=== PATIENT | female | born 1940 | race Caucasian/White ===

== ENCOUNTER 2016-11-23 12:13 | Inpatient (IN) | payer MEDICARE, BC ==
--- NOTE | ~2016-11-23 | US84 ---
[id number] [facility]. [facility] [address] [facility]. [place], [place] [address] [id number] MR#: [id number] Acc #: [id number] NAME: SPENCER CEDILLO : 1940 SEX: F STUDY DATE/TIME: 11/24/2016 11:00 UNIT: C5B ROOM: 552 STUDY DESCRIPTION: US LE Veins Complete Jorge Stdy Attending Physician: Samira Doss M.D. Ordering Physician: Rosetta Gonzales M.D. Primary Care Physician: Yolanda Lamas M.D. MEDICAL IMAGING REPORT This report is preliminary unless electronic signature is present EXAM Bilateral lower extremity venous duplex, 11/24/2016. HISTORY Bilateral lower extremity pain and edema for 2 days. Evaluate for deep vein thrombosis. TECHNIQUE Venous ultrasound examination of both lower extremities was performed using grayscale, spectral Doppler and color flow Doppler imaging. FINDINGS The examination is negative. There is no evidence of deep venous thrombus from the groin to the lower calf bilaterally. Visualized greater saphenous veins are also patent. IMPRESSION Negative examination. No evidence of lower extremity deep venous thrombosis. Dictated by... Sergio Davis M.D. THIS IS AN ELECTRONICALLY VERIFIED REPORT Sergio Davis M.D. at 11/25/2016 9:23 AM MARGIE/tuyet TD: 11/24/2016 15:09 JOB #: [id number] MEDICAL IMAGING REPORT Page 1 of 1 COPY
--- NOTE | ~2016-11-23 | DS ---
Unit #: [id number] #: [id number] Patient: SPENCER CEDILLO [id number] [facility] [address] [facility]. [place], [place] [address] [id number] I MR#: [id number] NAME: SPENCER CEDILLO ROOM: [facility] Age: 76 Sex: F Admission Date: 11/23/2016 : 1940 Discharge Date: 11/28/2016 Attending Physician: Samira Doss M.D. Primary Care Physician: Yolanda Lamas M.D. DISCHARGE SUMMARY DIAGNOSIS ON ADMISSION Shortness of air. DIAGNOSES ON DISCHARGE 1. Acute pulmonary embolism. 2. Acute respiratory failure, resolved. 3. Atrial fibrillation with rapid ventricular rate. 4. Elevated troponin. 5. Hypertension. 6. Hyperlipidemia. CONSULTATIONS 1. Dr. Donaldson in hematology/oncology consultation. 2. Dr. Friedman in pulmonary consultation. 3. Dr. Smith in cardiology consultation. DIAGNOSTIC STUDIES LABORATORY: Patient's creatinine is 1.1, sodium 138, and potassium is 4.3. WBC 8.3, hemoglobin is 12.1, and platelet count is 258. Troponin was 0.03. TSH was 0.71. Patient's total cholesterol was 249, LDL was 163, HDL was 63, and triglycerides 115. IMAGING: Patient's bilateral lower extremity venous Dopplers did not reveal any evidence of DVT. VQ scan was high probability for PE. HOSPITAL COURSE This 76-year-old patient was admitted to [facility] with shortness of air. Details are as per admission H and P. Acute respiratory failure: It was secondary to PE. Patient was treated with Lovenox. Dr. Gonzalez has recommended Xarelto. Atrial fibrillation with history of rapid ventricular rate. Patient was seen by Dr. Smith in consultation, who has started patient on diltiazem as patient is already on it and will be on Xarelto at home. Elevated troponin. Patient is advised to follow up with primary care physician in one week. Patient had a 2D echocardiogram, which revealed left ventricular ejection fraction was normal. There was mild mitral and tricuspid regurgitation present and diastolic dysfunction present. Unit #: [id number] #: [id number] Patient: SPENCER CEDILLO Today, patient is comfortable and is anxious to go home. Patient was started on Lipitor. Because of her LDL, patient is advised to have a fasting lipid profile and LFTs with primary care physician in six weeks. PHYSICAL EXAMINATION VITAL SIGNS: Reveal temperature of 97.6, pulse is 83 per minute, respiratory rate is 18 per minute, and blood pressure is 119/65. HEENT: Revealed no conjunctival congestion. Sclerae are nonicteric. NECK: Supple. Trachea is central. RESPIRATORY: Revealed breath sounds equal bilaterally. There are no wheezes or crackles. HEART: Regular rate and rhythm. S1 and S2. ABDOMEN: Soft and nontender. Bowel sounds are present in all four quadrants. NEUROLOGIC: Patient is alert to person, place, and time. Power is 5 out of 5 bilaterally. Sensations are grossly intact. SKIN: Warm and dry. RECOMMENDATIONS ON DISCHARGE 1. Condition is stable. 2. Activities as tolerated. MEDICATIONS 1. Cardizem CD 120 mg p.o. daily. 2. Lopressor 25 mg p.o. b.i.d. 3. Lipitor 40 mg p.o. q.h.s. 4. Xarelto 15 mg 1 p.o. b.i.d. for 3 weeks and then 20 mg p.o. daily. FOLLOWUP 1. Patient is advised to follow up with primary care physician in one week and follow up with Dr. Friedman in 1-[address] Smith in 2 weeks. Patient was advised to follow up with Dr. Gonzalez in 2 weeks as well for followup (1) . 2. Patient is advised to call primary care physician or go to ER if her condition changes. The plan was discussed in detail with patient and has also been discussed with patient's family and they have shown complete understanding. (2) home health regarding home safety assessment and PT and OT and nursing. Dictated by... Saray Jalloh TD: 11/28/2016 11:23 JOB #: [id number] CC: Florinda Gonzalez M.D. Unit #: [id number] #: [id number] Patient: SPENCER CEDILLO DISCHARGE SUMMARY Page 1 of 1 X Samira Doss MD DISCHARGE SUMMARY
--- NOTE | ~2016-11-23 | CO ---
Unit #: [id number] #: [id number] Patient: SPENCER WISDOM [id number] [facility]. [place], [place] [address] [id number] I MR#: [id number] NAME: SPENCER WISDOM ROOM: [facility] Age: 76 Sex: F Admission Date: 11/23/2016 : 1940 Attending Physician: Samira Doss M.D. Primary Care Physician: Yolanda Lamas M.D. Consultation Date: 11/24/2016 CONSULTATION REPORT REASON FOR CONSULTATION PE, possible sleep apnea. HISTORY OF PRESENT ILLNESS A 76-year-old female with no lung disease, who had a fairly sudden onset of shortness of breath on Wednesday. She still went to spiritism and do a , but she had worsening shortness of breath. It was primarily dyspnea on exertion. She denied chest pain, hemoptysis, wheezing, sputum production. She also denied any leg pain or swelling. It got worse and she went to her doctor and saturations were low and was brought to the emergency room. Here, she ultimately was diagnosed with a PE by V/Q scan which was high probability. Lower extremity venous Dopplers were negative. She does feel somewhat better today, but admits that she had not gotten up and walked. She has never had a previous blood clot. PAST MEDICAL HISTORY Remarkable for hypertension and depression. She denies any type of lung disease. She denies any type of heart disease nor any previous blood clots. MEDICATIONS At home; Procardia and lisinopril. ALLERGIES Iodine contrast, unknown reaction. FAMILY HISTORY Her mother had blood clot that was unprovoked. SOCIAL HISTORY She is a never smoker. 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 There has been no trauma, prolonged immobilization, etc. REVIEW OF SYSTEMS No fever, chills, weight loss, trauma, casting, prolonged immobilization, chest pain, palpitations, abdominal pain, melena, hematochezia, hematuria, or dysuria. Further review of systems negative. She does snore and she has profound daytime sleepiness. She feels like she wants to fall asleep whenever she sits down. PHYSICAL EXAMINATION GENERAL: Reveals a patient, who is in no acute distress. Unit #: [id number] #: [id number] Patient: SPENCER WISDOM VITAL SIGNS: Afebrile, pulse 52, respiratory rate is 16, blood pressure is 143/66. She is 5 feet 6 inches and 216 pounds. HEENT: Pupils are equal, round, and reactive to light. Sclerae anicteric. Head atraumatic. NECK: Supple. No supraclavicular or cervical adenopathy appreciated. Mucous membranes moist. Mallampati class IV oropharynx. She has dentures. CHEST: Equal breath sounds. No wheeze or stridor. CARDIAC: Reveals regular rate and rhythm. No gallop. ABDOMEN: Obese, soft, and nontender. No hepatomegaly or rebound. EXTREMITIES: Reveal no clubbing, cyanosis, or edema. No calf tenderness. SKIN: Warm and dry without rash or diaphoresis. NEUROLOGIC: Grossly intact. No focal motor or sensory deficits. DIAGNOSTIC STUDIES IMAGING STUDIES: V/Q scan, high probability BUN is 22, creatinine is 1.1. Troponin was elevated at 0.23, now at 0.13. BNP is 108. D-dimer was 7643. CBC normal. IMAGING STUDIES: Rhythm strip, sinus. IMPRESSION 1. Acute pulmonary embolism, unprovoked. 2. Respiratory failure with a low saturations, stable on low-flow oxygen. 3. Elevated troponin and elevated BNP secondary to pulmonary embolism and right ventricular strain. 4. Snoring and profound daytime sleepiness, almost assuredly sleep apnea (which certainly is a risk factor for clot). 5. Medical problems listed above. PLAN Check O2 needs in the morning. Follow up echocardiogram and outpatient nocturnal polysomnography. This has all been discussed with the family and patient. Certainly, if she is found to have elevated RVSP, she will need very close followup as an outpatient to rule out chronic thromboembolic pulmonary hypertension. I will ask Hematology to see the patient in consultation for hypercoagulable workup. At this point, it is unclear what cancer screening she is up to date on, but that will have to be investigated. Thank you very much for allowing me to participate in the care of Ms. Wisdom. Dictated by... Saray Daley/treva TD: 11/25/2016 05:46 JOB #: [id number] CC: Saray Garcia M.D. Unit #: [id number] #: [id number] Patient: SPENCER WISDOM CONSULTATION REPORT Page 1 of 1 X Canelo Friedman MD CONSULTATION REPORT
--- NOTE | ~2016-11-23 | CO ---
Unit #: [id number] #: [id number] Patient: SPENCER CEDILLO [id number] [address] [place], [place] [address] [id number] I MR#: [id number] NAME: SPENCER CEDILLO ROOM: [facility] Age: 76 Sex: F Admission Date: 11/23/2016 : 1940 Attending Physician: Samira Doss M.D. Primary Care Physician: Yolanda Lamas M.D. Consultation Date: 11/25/2016 CONSULTATION REPORT REASON FOR EVALUATION Pulmonary emboli, please evaluate. HISTORY OF PRESENT ILLNESS A 76-year-old lady who presented to the primary care with increasing shortness of breath, hypoxia. Was admitted, evaluated with a V/Q scan because her BUN was 32, creatinine 1.1 and was found to have a high probability V/Q scan and a D-dimer of 7643. Negative lower extremity Doppler. We are requested to evaluate. Today on questioning, she has her daughter with her and she states that after admission she is feeling much better. No chest pain. No hemoptysis. PAST MEDICAL HISTORY 1. Hypertension. 2. Depression. 3. No past history of DVT or PE. FAMILY HISTORY Positive for DVT in mother. No pulmonary emboli. Otherwise, family history is completely negative for coagulopathy or clotting or bleeding. SOCIAL HISTORY Nonsmoker. No alcohol usage. No drug usage. CHRONIC MEDICATIONS 1. Lisinopril. 2. Procardia. ALLERGIES IV contrast. REVIEW OF SYSTEMS Increasing shortness of breath. No chest pain. Mild degree of cough. Appetite fairly good. Weight is stable. Performance 100%. Otherwise, six or eight systems were within normal limits. PHYSICAL EXAMINATION GENERAL: On exam, she is very comfortable, lying flat in bed. VITAL SIGNS: O2 at 2 L nasal cannula. LUNGS: Few crepitations in the lungs bilaterally. No palpable nodes. CARDIOVASCULAR: Distant S1, S2. ABDOMEN: Moderately obese. No organomegaly. EXTREMITIES: Lower extremities: No edema. PELVIC: Not performed. Unit #: [id number] #: [id number] Patient: SPENCER CEDILLO BREAST: Not performed. DIAGNOSTIC STUDIES LABORATORY: CBC: Hemoglobin 11, hematocrit 34.9, white count 10.7, platelets 229,000. Sodium 139, potassium 4.7, chloride 105, CO2 of 26, glucose 95, BUN 32, creatinine 1.1. D-dimer 7643. IMAGING: V/Q scan: High probability. Doppler lower extremity: Negative. IMPRESSION This 76-year-old lady who presented with hypoxia and respiratory symptoms was found to have high probability V/Q scan, negative deep venous thrombosis, non ST myocardial infarction. Recuperating very well with negative risk factors for clotting except BMI of 35. Currently, much improved post admission. PLAN Will proceed with a mini hypercoagulable workup which will include factor V Leiden, prothrombin gene mutation, lupus anticoagulant, antiphospholipid and anticardiolipin antibodies. We will stop at that point from the hypercoagulable workup because the rest of them are mainly family related coagulation defects. No need to check for those. Will schedule outpatient followup in couple weeks to discuss with her, her risk factors. In the meantime, agree with you on Xarelto 15 mg twice daily for 21 days followed by 20 mg with supper. Dictated by... Victoriano Donaldson M.D. SHENA/dania TD: 11/25/2016 17:17 JOB #: [id number] CONSULTATION REPORT Page 1 of 1 X Victoriano Donaldson MD CONSULTATION REPORT
--- NOTE | ~2016-11-23 | EKG ---
PATIENT: SPENCER CEDILLO UNIT #: [id number] Ventricular Rate: 112 BPM Atrial Rate: 119 BPM QRS Duration: 92 ms Q-T Interval: 330 ms QTC Calculation(Bezet): 450 ms Calculated R [place]: -19 degrees Calculated T [place]: 89 degrees Diagnosis Line: Atrial fibrillation with rapid ventricular Diagnosis Line: response Diagnosis Line: Abnormal ECG Diagnosis Line: When compared with ECG of 26-NOV-2016 08:35, Diagnosis Line: No significant change was found Diagnosis Line: Confirmed by OH MONTES MD ([id number]) on Diagnosis Line: 11/27/2016 1:39:53 PM INTERPRETING MD: SIMON ESTES
--- NOTE | ~2016-11-23 | EKG ---
PATIENT: SPENCER CEDILLO UNIT #: [id number] Ventricular Rate: 89 BPM Atrial Rate: 89 BPM P-R Interval: 188 ms QRS Duration: 96 ms Q-T Interval: 354 ms QTC Calculation(Bezet): 430 ms P [place]: 59 degrees Calculated R [place]: -38 degrees Calculated T [place]: 52 degrees Diagnosis Line: Normal sinus rhythm Diagnosis Line: Left axis deviation Diagnosis Line: Abnormal ECG Diagnosis Line: No previous ECGs available Diagnosis Line: Confirmed by CHELY NIETO MD ([id number]) on Diagnosis Line: 11/23/2016 10:11:48 PM INTERPRETING MD: ARRON
--- NOTE | ~2016-11-23 | HP ---
Unit #: [id number] #: [id number] Patient: SPENCER CEDILLO [id number] [address] [place], [place] [address] [id number] I MR#: [id number] NAME: SPENCER CEDILLO ROOM: [address] Age: 76 Sex: F Admission Date: 11/23/2016 : 1940 Attending Physician: Isaias Lazo M.D. Primary Care Physician: Yolanda Lamas M.D. HISTORY AND PHYSICAL CHIEF COMPLAINT Shortness of breath. HISTORY OF PRESENT ILLNESS The patient is a 76-year-old female with a history of hypertension and depression, brought to the emergency room from the primary care physician's office for hypoxia. The patient stated she woke up yesterday and then noted shortness of breath. The patient stated the shortness of breath is mainly with activity. The patient denies any fever, chest pain or diaphoresis. The patient was spending the whole day at the yard sale. The patient denies any long car rides or flights or any new medications. The patient was found to be hypoxic in the emergency room with 88% on room air. The patient has a positive troponin up to 0.13 and is being admitted for the above reasons. PAST MEDICAL HISTORY 1. Hypertension. 2. Depression. PAST SURGICAL HISTORY Colonoscopy times two. SOCIAL HISTORY No history of smoking, alcohol or any illicit drug abuse. FAMILY HISTORY Reviewed and none. ALLERGIES Iodinated contrast. HOME MEDICATIONS 1. Lisinopril. 2. Procardia. REVIEW OF SYSTEMS Fourteen point review of systems was performed and only pertinent positives are described above. The remaining are negative. PHYSICAL EXAMINATION GENERAL: The patient is lying on the bed, not in acute distress. VITALS: Temperature 97.6, pulse 86, respiratory rate 14, blood pressure 170/81, saturating 98% on room air. HEENT: Head atraumatic, normocephalic. Pupils equal, round and reactive Unit #: [id number] #: [id number] Patient: SPENCER CEDILLO to light and accommodation. Extraocular movements are intact. NECK: Supple. LUNGS: Decreased air entry at the bases. HEART: Regular rate and rhythm. ABDOMEN: Soft. Positive bowel sounds. EXTREMITIES: No cyanosis or clubbing. NEUROLOGIC: Alert, awake and oriented. No gross focal motor deficits. DIAGNOSTIC STUDIES IMAGING: Chest x-ray shows no active disease. LABORATORY: BNP 108. White blood cell count 11, hemoglobin 12.1, hematocrit 38.4, platelets 243, troponin 0.13, CK-MB 3.4, sodium 138, potassium 4.7, chloride 108, bicarb 22, glucose 121, BUN 28, creatinine 1, calcium 9.4, AST 18, ALT 12, alkaline phosphatase 94, INR 0.9. Repeat troponin 0.01. CARDIOVASCULAR: EKG shows left axis deviation normal sinus rhythm with a rate of 89 beats per minute. ASSESSMENT 1. Shortness of breath, hypoxia. 2. Non-ST elevation myocardial infarction. 3. Hypertension. PLAN Admit the patient for observation with telemetry. The patient will have a VQ scan to rule out pulmonary embolism. The patient will be seen by cardiology. The patient is going to receive Lovenox 100 mg subcutaneous in the emergency room. Follow up with further recommendations. Check echocardiogram, lipid profile and TSH. Further recommendations will follow. Dictated by Saray Palumbo TD: 11/23/2016 16:08 JOB #: [id number] HISTORY AND PHYSICAL Page 1 of 1 X ISAIAS LAZO MD X HISTORY AND PHYSICAL
--- NOTE | ~2016-11-23 | EKG ---
PATIENT: SPENCER CEDILLO UNIT #: [id number] Ventricular Rate: 61 BPM Atrial Rate: 61 BPM P-R Interval: 184 ms QRS Duration: 92 ms Q-T Interval: 420 ms QTC Calculation(Bezet): 422 ms P [place]: 39 degrees Calculated R [place]: -30 degrees Calculated T [place]: -8 degrees Diagnosis Line: Normal sinus rhythm Diagnosis Line: Left axis deviation Diagnosis Line: Abnormal ECG Diagnosis Line: When compared with ECG of 23-NOV-2016 12:29, Diagnosis Line: T wave inversion now evident in Inferior leads Diagnosis Line: Confirmed by CHELY NIETO MD ([id number]) on Diagnosis Line: 11/24/2016 10:41:42 PM INTERPRETING MD: ARRON
--- NOTE | ~2016-11-23 | EKG ---
PATIENT: SPENCER CEDILLO UNIT #: [id number] Ventricular Rate: 146 BPM Atrial Rate: 129 BPM QRS Duration: 90 ms Q-T Interval: 252 ms QTC Calculation(Bezet): 392 ms Calculated R [place]: -35 degrees Calculated T [place]: 98 degrees Diagnosis Line: Atrial fibrillation with rapid ventricular Diagnosis Line: response Diagnosis Line: Left axis deviation Diagnosis Line: Nonspecific ST and T wave abnormality Diagnosis Line: Abnormal ECG Diagnosis Line: When compared with ECG of 24-NOV-2016 07:04, Diagnosis Line: Atrial fibrillation has replaced Sinus rhythm Diagnosis Line: Vent. rate has increased BY 85 BPM Diagnosis Line: Non-specific change in ST segment in Lateral leads Diagnosis Line: T wave inversion no longer evident in Inferior Diagnosis Line: leads Diagnosis Line: T wave inversion now evident in Lateral leads Diagnosis Line: Confirmed by CHELY NIETO MD ([id number]) on Diagnosis Line: 11/27/2016 6:41:27 AM INTERPRETING : ARRON
--- NOTE | ~2016-11-23 | CO ---
Unit #: [id number] #: [id number] Patient: SPENCER CEDILLO SANDY HOOK [id number] [facility] [address] [facility]. [place], [place] [address] [id number] I MR#: [id number] NAME: SPENCER CEDILLO ROOM: 55 Age: 76 Sex: F Admission Date: 11/23/2016 : 1940 Attending Physician: Grey Lazo M.D. Primary Care Physician: Yolanda Lamas M.D. Requesting Physician: Grey Lazo M.D. Consultation Date: 11/23/2016 CONSULTATION REPORT CHIEF COMPLAINT Shortness of breath and non-ST elevation myocardial infarction. HISTORY OF PRESENTING ILLNESS Patient is a 76-year-old female with a past medical history of hypertension, hyperlipidemia, and depression, who comes to [facility] ER with worsening shortness of breath from primary care physician's office. Patient states she has been having these symptoms since yesterday when she woke up and found herself to be short of breath on exertion. This kept on going yesterday. Each episode lasted for five to 10 minutes, but when she took a rest, it resolved. It limited her with her activities of daily living. This morning it got even much worse and she finally went to the primary care physician and was sent to the hospital for further evaluation. She denies any fever, cough, orthopnea, PND, pedal edema, or syncope. She does mention episodes of palpitations on and off since yesterday. She denies any howard chest pain, but she does mention some retrosternal chest tightness. In the emergency room, she was found to be saturating around 88% to 90% on room air, and also, her initial lab work was positive for troponin of 0.13. Patient's EKG showed normal sinus rhythm with nonspecific ST segment changes. No Q waves. No preexcitation. PAST MEDICAL HISTORY 1. Hypertension. 2. Hyperlipidemia. 3. Depression. PAST SURGICAL HISTORY Denies any cardiac surgery. SOCIAL HISTORY Denies smoking, alcohol, or illicit drug abuse. FAMILY HISTORY Denies premature coronary artery disease or sudden cardiac . ALLERGIES Iodinated contrast. HOME MEDICATIONS 1. Lisinopril 40 mg p.o. once daily. 2. Procardia XL 60 mg p.o. daily. Unit #: [id number] #: [id number] Patient: SPENCER CEDILLO REVIEW OF SYSTEMS A 14-point review of systems was performed and only pertinent positives have been described in the History of Present Illness. The remaining are negative. PHYSICAL EXAMINATION GENERAL: Patient is lying in the bed not in acute distress. VITAL SIGNS: Blood pressure is 162/78, saturating 96% on 2 liters, temperature 97.6, and heart rate is 92 beats per minute. HEENT: PERRLA. Head atraumatic and normocephalic. NECK: No thyromegaly. No JVD. LUNGS: Normal vesicular breath sounds heard anteriorly. , scattered crackles heard. HEART: S1 and S2 are regular. No murmurs appreciated. ABDOMEN: Soft and nontender. EXTREMITIES: Trace edema. Distal pulses present. NEUROLOGIC: Alert and oriented x3. Speech and gait normal. . MUSCULOSKELETAL: . DIAGNOSTIC STUDIES LABORATORY: BNP is 108. Troponin is 1.3. Hemoglobin 12. IMAGING: Chest x-ray with no active cardiopulmonary disease. CARDIOLOGY: EKG shows sinus rhythm with nonspecific ST segment changes. No Q waves. ASSESSMENT AND PLAN 1. Non-ST elevation myocardial infarction. Patient does have risk factors of hypertension, hyperlipidemia, state, though patient's presentation currently is more concerning for acute pulmonary embolism. Patient is about to go for a ventilation/perfusion scan. If V/Q scan is negative, patient risk factors and markers, patient will undergo cardiac catheterization tomorrow morning. Though if V/Q scan shows high probability of acute pulmonary embolism, patient should be treated for pulmonary embolism during this hospitalization. Start beta jameel, statin, and aspirin and plan to receive the full dose of Lovenox. 2. Hypertension, suboptimal control. Will her during inpatient continue lisinopril. Patient will be also started on amlodipine instead of nifedipine XL. A 2D echocardiogram in the morning. 3. Hyperlipidemia. Patient does not take any medications at home. Start Lipitor 80 mg p.o. daily . 4. Further plans as inpatient. 1. Dictated by... Saray Bernal/hanna TD: 11/23/2016 22:03 JOB #: [id number] Unit #: [id number] #: [id number] Patient: SPENCER CEDILLO CONSULTATION REPORT Page 1 of 1 X TAQUERIA ALEX MD X CONSULTATION REPORT
--- NOTE | ~2016-11-23 | NM69 ---
[facility] A Service of [facility] RADIOLOGY TEXT RESULTS PATIENT: SPENCER CEDILLO LOCATION: [place] [address] : 40 UNIT #: [id number] AGE: [address]: Samira Doss MD SEX: F ORDER DR: [id number] [place] [id number] [facility]. [place], [place] [address] [id number] MR#: [id number] Acc #: [id number] NAME: SPENCER CEDILLO : 1940 SEX: F STUDY DATE/TIME: 11/23/2016 18:21 UNIT: [facility] ROOM: [facility] STUDY DESCRIPTION: NM Pulm Vent and Perf Attending Physician: Samira Doss M.D. Ordering Physician: Jose Taylor M.D. Primary Care Physician: Yolanda Lamas M.D. MEDICAL IMAGING REPORT This report is preliminary unless electronic signature is present EXAM VQ scan INDICATION Tachycardia and shortness of breath starting a month ago. Patient noticed swelling in her lower extremities for about 2-3 days. TECHNIQUE Patient was administered 30.7 mCi of technetium 99m DTPA and 6 mCi of technetium 99m MAA particles. Images in multiple obliquities were obtained. COMPARISON Comparison is made to this patient's PA and lateral chest radiograph performed today. FINDINGS This patient has multiple ventilation perfusion mismatches. No corresponding abnormality is identified on the patient's PA and lateral chest radiograph. These appear to be bilateral mismatches. IMPRESSION High probability VQ scan. Attempts were made to contact Dr. Lazo following the dictation; when I was unable to contact Dr. Lazo, the patient's nurse was informed of the findings at 10 PM and she said she would contact him. Dictated by... Brigitte Corea M.D. [facility] A Service [facility] RADIOLOGY TEXT RESULTS PATIENT: SPENCER CEDILLO LOCATION: [place] [address] : 40 UNIT #: [id number] AGE: [address]: Samira Doss MD SEX: F ORDER DR: THIS IS AN ELECTRONICALLY VERIFIED REPORT Brigitte Corea M.D. at 11/24/2016 12:57 PM [email or web address]/[email or web address] TD: 11/24/2016 09:26 JOB #: [id number] MEDICAL IMAGING REPORT Page 1 of 1 COPY
--- NOTE | ~2016-11-23 | CR63 ---
[facility] A Service of [facility] RADIOLOGY TEXT RESULTS PATIENT: SPENCER CEDILLO LOCATION: [place] [address] : 40 UNIT #: [id number] AGE: [address]: Samira Doss MD SEX: F ORDER DR: [id number] [facility] [address] [facility]. [place], [place] [address] [id number] MR#: [id number] Acc #: [id number] NAME: SPENCER CEDILLO : 1940 SEX: F STUDY DATE/TIME: 11/23/2016 13:23 UNIT: [facility] ROOM: [facility] STUDY DESCRIPTION: CR Chest 2 View Attending Physician: Grey Lazo M.D. Ordering Physician: Jose Taylor M.D. Primary Care Physician: Yolanda Lamas M.D. MEDICAL IMAGING REPORT This report is preliminary unless electronic signature is present EXAM Chest PA and lateral 11/23 COMPARISON STUDIES None HISTORY Shortness of breath for 1 day. FINDINGS PA and lateral views are obtained. Heart size in the patient is upper limits of normal. Vascular pattern is normal. The lungs are clear. There is atherosclerotic calcifications in the aorta. CONCLUSION No active disease. Dictated by... Van Faulkner M.D. THIS IS AN ELECTRONICALLY VERIFIED REPORT Van Faulkner M.D. at 11/24/2016 7:13 AM DANY/ciara TD: 11/23/2016 18:05 JOB #: [id number] MEDICAL IMAGING REPORT Page 1 of 1 COPY
[~2016-11-23 12:13] MED LIST: ADALATCC PO; MAXZIDE 75/50 T1 TAB PO; PRINIVIL40 MG PO; ZOLOFT50 MG PO
[2016-11-23 13:21] LABS: BASOPHIL% 0.3 % (0-2.5); EOSINOPHIL% 0.2 % (0.0-7.0); HEMATOCRIT 38.4 % (35.0-45.0); HEMOGLOBIN 12.1 gm/dL (12.0-16.0); LYMPHOCYTE# 1.7 X10e3 (1.0-3.5); LYMPHOCYTE% 15.3 % (17.0-45.0); MEAN CORPUSCULAR HEMOGLOBIN 29.7 PG (28-34); MEAN CORPUSCULAR HGB CONC 31.6 g/dL (30-36); MEAN PLATELET VOLUME 9.4 FL (6.5-11.5); MONOCYTE# 0.7 X10e3 (0-1.0); NEUTROPHIL# 8.6 X10e3 (1.5-7.1); NEUTROPHIL% 78.2 % (40-75); PLATELET COUNT 243 X10e3 (140-420); RED BLOOD COUNT 4.08 X10e (3.90-5.30); RED CELL DISTRIBUTION WIDTH 13.3 % (11.0-15.5)
[2016-11-23 13:24] LABS: DIFF IND NO
[2016-11-23 13:29] LABS: POC - CKMB 3.4 ng/mL (0.0-7.9); POC - TROPONIN 0.13 ng/mL (<=0.05)
[2016-11-23 13:41] LABS: INR 0.9; PARTIAL THROMBOPLASTIN TIME 28.2 SECONDS (23.5-31.3); PROTHROMBIN TIME (PATIENT) 10.3 SECONDS (10.0-11.7)
[2016-11-23 13:47] LABS: BILIRUBIN, DIRECT 0.1 mg/dL (0.0-0.2); BILIRUBIN,INDIRECT 0.1 mg/dL (0.0-0.9); BILIRUBIN,TOTAL 0.2 mg/dL (0.2-2.0); CALCIUM SERUM 9.4 mg/dL (8.4-10.2); GLOM FILT RATE Estimated 54.7 mL/min (>60); POTASSIUM 4.7 mmol/L (3.5-5.1); PROTEIN TOTAL SERUM 7.6 g/dL (6.0-8.3)
[2016-11-23 15:03] LABS: POC - CKMB 3.2 ng/mL (0.0-7.9); POC - TROPONIN 0.14 ng/mL (<=0.05)
[2016-11-23 21:08] LABS: CHOLESTEROL 249 mg/dL (0-200); HDL CHOLESTEROL 63 mg/dL (35-95); LDL/HDL RATIO 3 RATIO (0-4); TRIGLYCERIDES 115 mg/dL (10-160)
[2016-11-23 21:09] LABS: LDL CHOLESTEROL 163 mg/dL (-130)
[2016-11-23 21:19] LABS: %MB 5.3 % (0.0-4.0)
[2016-11-24 02:46] LABS: HEMATOCRIT 39.1 % (35.0-45.0); HEMOGLOBIN 12.6 gm/dL (12.0-16.0); MEAN CELL VOLUME 93.8 FL (83-96); MEAN CORPUSCULAR HEMOGLOBIN 30.2 PG (28-34); MEAN CORPUSCULAR HGB CONC 32.1 g/dL (30-36); MEAN PLATELET VOLUME 8.6 FL (6.5-11.5); RED BLOOD COUNT 4.17 X10e (3.90-5.30); RED CELL DISTRIBUTION WIDTH 13.7 % (11.0-15.5); WHITE BLOOD COUNT 9.8 X10e3 (4.0-10.5)
[2016-11-24 03:04] LABS: INR 0.9; PARTIAL THROMBOPLASTIN TIME 30.5 SECONDS (23.5-31.3); PROTHROMBIN TIME (PATIENT) 10.3 SECONDS (10.0-11.7)
[2016-11-24 03:19] LABS: BUN/CREATININE RATIO 27.77; CALCIUM SERUM 9.1 mg/dL (8.4-10.2); CREATININE SERUM 0.9 mg/dL (0.6-1.4); GLOM FILT RATE Estimated 62.2 mL/min (>60)
[2016-11-24 03:20] LABS: POTASSIUM 5.6 mmol/L (3.5-5.1)
[2016-11-24 03:37] LABS: MB 4.8 ng/ml
[2016-11-24 08:59] LABS: CALCIUM SERUM 9.2 mg/dL (8.4-10.2); CREATININE SERUM 1.1 mg/dL (0.6-1.4); GLOM FILT RATE Estimated 48.7 mL/min (>60); POTASSIUM 5.1 mmol/L (3.5-5.1)
[2016-11-25 06:20] LABS: HEMATOCRIT 34.9 % (35.0-45.0); MEAN CORPUSCULAR HEMOGLOBIN 29.6 PG (28-34); MEAN CORPUSCULAR HGB CONC 31.5 g/dL (30-36); MEAN PLATELET VOLUME 9.6 FL (6.5-11.5); RED BLOOD COUNT 3.72 X10e (3.90-5.30); RED CELL DISTRIBUTION WIDTH 13.6 % (11.0-15.5); WHITE BLOOD COUNT 10.7 X10e3 (4.0-10.5)
[2016-11-25 07:03] LABS: BUN/CREATININE RATIO 29.09; CALCIUM SERUM 8.8 mg/dL (8.4-10.2); CREATININE SERUM 1.1 mg/dL (0.6-1.4); GLOM FILT RATE Estimated 48.7 mL/min (>60); MAGNESIUM 1.7 mg/dL (1.6-3.0); POTASSIUM 4.7 mmol/L (3.5-5.1)
[2016-11-26 06:28] LABS: HEMATOCRIT 37.8 % (35.0-45.0); HEMOGLOBIN 12.1 gm/dL (12.0-16.0); MEAN CELL VOLUME 92.6 FL (83-96); MEAN CORPUSCULAR HEMOGLOBIN 29.6 PG (28-34); MEAN PLATELET VOLUME 9.3 FL (6.5-11.5); RED BLOOD COUNT 4.09 X10e (3.90-5.30); RED CELL DISTRIBUTION WIDTH 13.6 % (11.0-15.5); WHITE BLOOD COUNT 8.3 X10e3 (4.0-10.5)
[2016-11-26 07:46] LABS: BUN/CREATININE RATIO 25.45; CALCIUM SERUM 9.2 mg/dL (8.4-10.2); CREATININE SERUM 1.1 mg/dL (0.6-1.4); GLOM FILT RATE Estimated 48.7 mL/min (>60); MAGNESIUM 1.5 mg/dL (1.6-3.0); POTASSIUM 4.6 mmol/L (3.5-5.1)
[2016-11-27 06:38] LABS: BUN/CREATININE RATIO 28.18; CALCIUM SERUM 9.1 mg/dL (8.4-10.2); CREATININE SERUM 1.1 mg/dL (0.6-1.4); GLOM FILT RATE Estimated 48.7 mL/min (>60); MAGNESIUM 1.8 mg/dL (1.6-3.0); POTASSIUM 4.3 mmol/L (3.5-5.1)
[2016-11-28] MEDS ORDERED: METOPROLOL TAR25 MG PO (10:21)
[2016-11-28] MEDS ORDERED: DILTIAZEM 24HR120 M1 PO (10:21)
[2016-11-28] MEDS ORDERED: LIPITOR40 MG PO (10:23)
[2016-11-28] MEDS ORDERED: XARELTO15 MG PO (10:36)
[2016-11-28 13:42] LABS: CARDIOLIPIN IGG (LUPUS) <14 GPL (<=14); CARDIOLIPIN IGM (LUPUS) <12 MPL (<=12); DRVVT MIX INTERP (LUPUS) Not Indicated (()); HEXAGONAL PHASE CONF (LUPUS) Positive (Negative); IMM PTT LA MIX NOT CORRECTED (()); INR LUPUS 1.1 (()); PROTROMBIN TIME LUPUS 11.5 sec (9.0-11.5); PT (LA MIX STUDY) 11.5 sec (<=11.5); PTT MIX INTERP Has been added (()); PTT-LA 63 sec (<=40); PTT-LA SCREEN (LUPUS) 63 sec (<=40); THROMBIN TIME LUPUS 27 sec (13-19); dRVVT SCREEN (LUPUS) 45 sec (<=45)
== END 2016-11-28 12:48 | disposition home health service (06) | DRG 280 ==
LOC: CED 12:13 → CEDOF 14:58 → CED 14:58 → CEDOF 15:07 → C5B 16:00 → CEDOF 16:00 → C5B 17:04 → CEDOF 17:04 → C5B 11-24 06:39
PROVIDERS: Emergency Medicine; Internal Medicine; Internal Medicine Medical Oncology; Nurse Practitioner
PROC: B24BYZZ Ultrasonography of Heart with Aorta using Other Contrast (ICD-10-PCS; principal; 2016-11-24)
DX: I21.4 Non-ST elevation (NSTEMI) myocardial infarction (principal); I26.99 Other pulmonary embolism without acute cor pulmonale; J96.01 Acute respiratory failure with hypoxia; I10 Essential (primary) hypertension; F32.9 Major depressive disorder, single episode, unspecified; I48.91 Unspecified atrial fibrillation; Z91.041 Radiographic dye allergy status; E78.5 Hyperlipidemia, unspecified; I08.1 Rheumatic disorders of both mitral and tricuspid valves
CPT/HCPCS: 36415; 71020; 78582; 80048; 80061; 80076; 81240; 81241; 82550; 82553; 82947; 83735; 83880; 84443; 84484; 85025; 85027; 85379; 85598; 85610; 85613; 85670; 85730; 86146; 86147; 86148; 93005; 93306; 93970; 94640; 94760; 96360; 97162; 97166; 99285; A9540; A9567; G8978-GP; G8979-GP; G8980-GP; G8987-GO; G8988-GO; G8989-GO; J1650; J3475; J3490